=== PATIENT | female | born 1990 | race American Indian/Alaskan Native ===

== ENCOUNTER 2022-04-26 15:43 | Emergency (ER) | payer MEDICAID ==
[2022-04-26 16:31] VITALS: BP 144/92
--- NOTE | 2022-04-26 16:44 | Emergency Department Report ---
ED General Adult HPI - General Chief complaint: Chest Pain Stated complaint: 19WKS /CHEST PAIN PUI?: No Time Seen by Provider: 04/26/22 16:38 Source: patient Mode of arrival: Ambulatory Limitations: No Limitations - History of Present Illness Initial comments: PT IS 31 YO WHO COMES TO ER WITH CP/SOB/PALPITATIONS SHE IS 19W SENT HERE BY MD FOR PE EVALUATION PT IS WEARING A HEART MONITOR Severity scale (0 -10): 8 - Related Data Allergies Allergy/AdvReac Type Severity Reaction Status Date / Time aspirin Allergy Shortness Verified 04/26/22 16:32 of Breath ED Review of Systems ROS: Stated complaint: 19WKS /CHEST PAIN Other details as noted in HPI Comment: All other systems reviewed and negative ED Past Medical Hx - Past Medical History Previous Medical History?: Yes Additional medical history: SVT, anxiety, ectopic - Surgical History Past Surgical History?: Yes - Family History Family history: no significant - Social History Smoking Status: Never Smoker Substance Use Type: None ED Physical Exam - General Limitations: No Limitations General appearance: alert, in no apparent distress - Head Head exam: Present: atraumatic, normocephalic - Eye Eye exam: Present: normal appearance - ENT ENT exam: Present: mucous membranes moist - Neck Neck exam: Present: normal inspection - Respiratory Respiratory exam: Present: normal lung sounds bilaterally. Absent: respiratory distress - Cardiovascular Cardiovascular Exam: Present: regular rate, normal rhythm. Absent: systolic murmur, diastolic murmur, rubs, gallop - GI/Abdominal GI/Abdominal exam: Present: soft, normal bowel sounds - Extremities Exam Extremities exam: Present: normal inspection - Back Exam Back exam: Present: normal inspection - Neurological Exam Neurological exam: Present: alert, oriented X3 - Psychiatric Psychiatric exam: Present: normal affect, normal mood - Skin Skin exam: Present: warm, dry, intact, normal color. Absent: rash ED Course Vital Signs 04/26/22 16:28 Temperature 98.9 F Pulse Rate 112 H Respiratory 14 Rate Blood Pressure 144/92 [Right] O2 Sat by Pulse 97 Oximetry ED Medical Decision Making - Medical Decision Making LABS/EKG ORDERED TO MAIN FOR EVALUATION Critical care attestation.: If time is entered above; I have spent that time in minutes in the direct care of this critically ill patient, excluding procedure time. ED Disposition Clinical Impression: Chest pain Disposition: 30 STILL A PATIENT Is pt being admited?: No Does the pt Need Aspirin: No Condition: Stable Time of Disposition: 16:43
[2022-04-26 17:16] LABS: Hematocrit 35.4 % (30.3-42.9); Hemoglobin 11.9 gm/dl (10.1-14.3); Mean Corpuscular HGB Conc 34 % (30-34); Mean Corpuscular Volume 90 fl (79-97); Platelet Count 252 K/mm3 (140-440); Red Blood Count 3.95 M/mm3 (3.65-5.03); Red Cell Distribution Width 15.1 % (13.2-15.2)
[2022-04-26 17:32] LABS: INR 0.84 (0.87-1.13)
[2022-04-26 17:33] LABS: Partial Thromboplastin Time 30.5 Sec. (24.2-36.6)
[2022-04-26 17:34] LABS: Alanine Aminotransferase 9 units/L (7-56); Albumin 3.6 g/dL (3.9-5); Blood Urea Nitrogen 6 mg/dL (7-17); Calcium 9.4 mg/dL (8.4-10.2); Hemolysis Index 2
[2022-04-26 17:35] LABS: BUN/Creatinine Ratio 12
--- NOTE | 2022-04-29 18:06 | Electrocardiograph Report ---
[facility] Test Date: 2022-04-26 Test Time: 16:19:36 Pat Name: MARCIA PETERSON Department: Room: Gender: F Good Humor Vendor: JUNIOR : 1990 Requested By: MONIQUE PERES Order Number: [id number] Reading MD: Suresh Mackay Measurements Intervals [place] Rate: 100 P: 57 LA: 154 QRS: 40 QRSD: 94 T: 30 QT: 339 QTc: 438 Interpretive Statements Sinus tachycardia No previous ECG available for comparison Electronically Signed On 04-29-2022 18:05:46 EDT by Suresh Mackay
== END 2022-04-27 05:28 | disposition still patient (30) ==
LOC: ED 15:43
DX: O99.412 Diseases of the circulatory system complicating pregnancy, second trimester (principal); Z3A.19 19 weeks gestation of pregnancy; Z88.6 Allergy status to analgesic agent; F41.9 Anxiety disorder, unspecified
CPT/HCPCS: 36415; 80053; 83880; 84439; 84443; 84484; 85027; 85379; 85610; 85730; 93005; 99282; 99283

== ENCOUNTER 2022-05-14 11:27 | Outpatient (CLI) | payer MEDICAID ==
[2022-05-14 14:07] LABS: Amphetamine Screen,Urine Negative; Benzodiazepines Screen,Urine Negative; Cannabinoid Screen,Urine Negative; Cocaine Screen,Urine Negative; Methadone Screen,Urine Negative; Opiate Screen,Urine Negative
[2022-05-14 14:18] VITALS: BP 120/83
[2022-05-14 14:29] LABS: Bacteria,Urine 2+ /HPF (Negative); Mucus,Urine FEW /HPF
--- NOTE | 2022-05-14 14:40 | Ultrasound Report ---
ULTRASOUND OBSTETRIC LIMITED INDICATION / CLINICAL INFORMATION: FHR. - Clinical Gestational Age (GA) in weeks, days: 21, 5 TECHNIQUE: Transabdominal. COMPARISON: None available. FINDINGS: HEART RATE (beats per minute): 170 PRESENTATION: Cephalic. ADDITIONAL FINDINGS: There is good movement per the technologist. IMPRESSION: The heart rate is 170 bpm. Signer Name: Bartolo Swanson MD Signed: 05/14/2022 2:36 PM Workstation Name: [email or web address]
[2022-05-14 14:43] LABS: Color,Urine Straw (Yellow)
== END 2022-05-14 14:39 | disposition left against medical advice (07) ==
LOC: EDSTATUS 11:57 → TRG 12:17 → APU 12:20 → TRG 14:39
PROVIDERS: ATTEND Obstetrics & Gynecology
DX: Z34.92 Encounter for supervision of normal pregnancy, unspecified, second trimester (principal); Z3A.26 26 weeks gestation of pregnancy
CPT/HCPCS: 76815; 80307; 81001; 87086

== ENCOUNTER 2022-05-27 06:41 | Emergency (ER) | payer MEDICAID ==
[2022-05-27] MEDS ORDERED: SODIUM CHLORIDE 0.9% 1000 ML 1,000 ML IV ONE (07:03)
[2022-05-27] MEDS ORDERED: METOPROLOL TARTRATE 5 MG/5 ML INJ IV ONE ×2 (07:04→07:15)
--- NOTE | 2022-05-27 07:15 | Emergency Department Report ---
ED Palpitations HPI - General Chief Complaint: Arrhythmia/Palpitations Stated Complaint: SVT Time Seen by Provider: 05/27/22 07:01 Source: patient, EMS Mode of arrival: Stretcher Limitations: No Limitations - History of Present Illness Initial Comments: 32 yo at 24 wks gestation with recent diagnosis of SVT who came with palpitation that is been worsening for the last couple of days. She says she was here the last visit but has to sign out before seen because it was too late. Pt denies any drug use. She reports nausea and emesis. No fever or chills reported. Pt denies any vaginal bleeding or discharge. No gush of fluid reported. No abdominal discomfort noted. No other modifying or associated factors reported. - Related Data Previous Rx's Medication Instructions Recorded Last Taken Type Metoprolol [Lopressor TAB] 50 mg PO BID 30 Days #60 tablet NS 05/27/22 Unknown Rx Allergies Allergy/AdvReac Type Severity Reaction Status Date / Time aspirin Allergy Shortness Verified 04/26/22 16:32 of Breath cyclobenzaprine Allergy Unknown Verified 05/27/22 06:51 [From Flexeril] tramadol Allergy Unknown Verified 05/27/22 06:51 ED Review of Systems ROS: Stated complaint: SVT Other details as noted in HPI Comment: All other systems reviewed and negative Cardiovascular: palpitations (svt) Gastrointestinal: nausea, vomiting, other (). denies: abdominal pain ED Past Medical Hx - Past Medical History Hx Deep Vein Thrombosis: Yes (SVT) Hx Renal Disease: No Hx Sickle Cell Disease: No Hx Seizures: No Hx HIV: No Additional medical history: SVT, anxiety, ectopic - Social History Smoking Status: Never Smoker - Medications Home Medications: Home Medications Medication Instructions Recorded Confirmed Last Taken Type Metoprolol [Lopressor TAB] 50 mg PO BID 30 Days #60 tablet NS 05/27/22 Unknown Rx ED Physical Exam - General Limitations: No Limitations General appearance: alert, in no apparent distress, anxious - ENT ENT exam: Present: normal exam, mucous membranes dry - Neck Neck exam: Present: full ROM. Absent: tenderness - Respiratory Respiratory exam: Present: normal lung sounds bilaterally. Absent: respiratory distress, accessory muscle use - Cardiovascular Cardiovascular Exam: Present: normal rhythm, tachycardia, normal heart sounds - GI/Abdominal GI/Abdominal exam: Present: soft, other ( ) - Extremities Exam Extremities exam: Present: normal inspection, normal capillary refill. Absent: tenderness, pedal edema - Back Exam Back exam: Present: normal inspection. Absent: tenderness, CVA tenderness (R), CVA tenderness (L) - Neurological Exam Neurological exam: Present: alert, oriented X3 - Psychiatric Psychiatric exam: Present: normal affect, anxious - Skin Skin exam: Present: warm, normal color ED Course Vital Signs 05/27/22 05/27/22 05/27/22 06:52 07:00 07:13 Pulse Rate 227 H 210 H Respiratory 26 H Rate Blood Pressure 98/44 Blood Pressure [Left] O2 Sat by Pulse 94 Oximetry 05/27/22 05/27/22 05/27/22 07:16 07:30 07:46 Pulse Rate 210 H 185 H 189 H Respiratory 17 23 17 Rate Blood Pressure 96/48 94/58 70/45 Blood Pressure [Left] O2 Sat by Pulse 95 89 Oximetry 05/27/22 05/27/22 05/27/22 08:00 08:13 08:16 Pulse Rate 188 H 193 H Respiratory 26 H 26 H 28 H Rate Blood Pressure 70/45 70/36 Blood Pressure [Left] O2 Sat by Pulse 96 100 99 Oximetry 05/27/22 05/27/22 05/27/22 08:30 08:46 08:56 Pulse Rate 205 H 191 H 109 H Respiratory 20 21 18 Rate Blood Pressure 84/36 54/33 Blood Pressure 110/66 [Left] O2 Sat by Pulse 99 100 Oximetry 05/27/22 05/27/22 05/27/22 09:00 09:02 09:16 Pulse Rate 122 H 111 H 104 H Respiratory 17 17 22 Rate Blood Pressure 54/33 94/62 Blood Pressure 109/64 [Left] O2 Sat by Pulse 99 100 99 Oximetry 05/27/22 05/27/22 05/27/22 09:30 09:46 10:00 Pulse Rate 105 H 104 H 104 H Respiratory 18 19 21 Rate Blood Pressure 107/74 118/64 118/64 Blood Pressure [Left] O2 Sat by Pulse 99 100 100 Oximetry 05/27/22 05/27/22 05/27/22 10:25 10:30 10:46 Pulse Rate 110 H 103 H 99 H Respiratory 15 13 Rate Blood Pressure 96/63 102/59 101/49 Blood Pressure [Left] O2 Sat by Pulse 97 99 Oximetry 05/27/22 05/27/22 11:00 11:16 Pulse Rate 98 H 121 H Respiratory 20 14 Rate Blood Pressure 113/75 102/54 Blood Pressure [Left] O2 Sat by Pulse 97 Oximetry - Reevaluation(s) Reevaluation #1: 05/27/22 08:58 I was called to the room that patient was vomiting and at the same time noticed her blood pressure up 116/66 mmHg and the heart rate down to 109 bpm. Pt ordered for Zofran 4 mg IV x 1-- will continue to monitor this patient and the fetus. 05/27/22 09:07 - Consultations Consultation #1: 05/27/22 09:33 Dr Mackay consulted who called back and suggested discharging this patient with metoprolol 50 mg PO x BID and follow with her seasonal clerk ED Medical Decision Making - Lab Data Result diagrams: 05/27/22 07:36 05/27/22 07:36 - EKG Data -: EKG Interpreted by Me - EKG Data 05/27/22 14:30 Initial EKG supraventricular tachycardia at a rate of [address] elev ation in this abnormal ECG 05/27/22 14:31 8 repeated EKG after conversion noted with sinus tachycardia at a rate of 102 bpm - Medical Decision Making here with palpitation and noted in SVT at the rate of 220 bpm on presentation with EKG captured at 208 bpm-- will go ahead and order routine labs including CBC, CMP, UA and thyroid profile for any infectious process or electrolytes abnormality or thyroid derangement. In the mean time-- carotid massage left and right side at a time with no response. Pt ordered for Metoprolol 2.5 mg IV x 1 and call made out for Dr Mackay the seasonal clerk concreter-- Dr Mackay agreed with metoprolol and suggested 5 mg but because this patient blood pressure noted be very soft at 94/65 mmHg. Will continue to reassess and give the remaining Metoprolol 2.5 mg. Noted with improvement in heart rate now at 187 bpm from 220 bpm. I also called and involved the Queen Producer Dr Putnam who suggested getting a full Ob US with bioprofile to start with. Pt's internal affairs commander is [facility] by Dr Milton Raman and Retail Product Advisor at [facility]. Pt is also started on ivf ns 1L bolus for hydration incase of dehydration and given Versed 2 mg IV for noted anxiety-- Will continue to monitor this patient progress. Patient was able to sleep and rested--and was noted with heart rate of between 75 and 85 on the monitor with an improved blood pressure. Dr Putnam came into the ED and saw patient and discussed the normal bioprofile US with me-- and sign off on this patient to follow up her regular Queen Producer. Dr Mackay however wanted me to start this patient on Metoprolol 50 mg BID with close follow up with her PCP and Queen Producer-- pt reassured Critical Care Time: Yes (120) Critical care time in (mins) excluding proc time.: 120 Critical care attestation.: If time is entered above; I have spent that time in minutes in the direct care of this critically ill patient, excluding procedure time. Here with SVT with hypotension with nausea and vomiting and with 6 months gestation and due to high probability of clinically significant, life threatening deterioration, this patient required my highest level of preparedness to intervene emergently and I personally spent this critical care time directly and personally managing this patient. This critical care time included obtaining a history; examining this patient; pulse oximetry ; ordering and review of studies ; arranging urgent treatment with development of a managem ent plan ; evaluation of patient's response to treatment ; frequent reassessment ; and, discussion with other providers. This critical care time was performed to assess and manage the high probability of imminent, life-threatening deterioration that could result in multiple organ damage if not done in a timely fashion. ED Disposition Clinical Impression: SVT (supraventricular tachycardia), and not yet delivered in second trimester Nausea and vomiting Qualifiers: Vomiting type: unspecified Qualified Code(s): R11.2 - Nausea with vomiting, unspecified Disposition: 01 HOME / SELF CARE / HOMELESS Is pt being admited?: No Does the pt Need Aspirin: No Condition: Stable Instructions: and Travel, Care, Nausea and Vomiting, Adult, Supraventricular Tachycardia, Adult, [id number], Nausea and Vomiting, Adult, [id number], Preventing Injuries During , [id number], Second Trimester of , [id number] Additional Instructions: Please follow the above printed instruction as suggested Call and schedule follow-up with your primary doctor/STAFF ELECTRONIC WARFARE OFFICER as planned Please do not hesitate to call or return to emergency room if your symptoms worsen It is very important that you continue to take your heart medicine metoprolol to continue to stabilize your irregular heartbeat Prescriptions: Metoprolol [Lopressor TAB] 50 mg PO BID 30 Days #60 tablet NS Time of Disposition: 14:38
[2022-05-27 07:34] LABS: Bacteria,Urine 1+ /HPF (Negative); Mucus,Urine 2+ /HPF
[2022-05-27 07:46] LABS: Basophils # (Auto) 0.1 K/mm3 (0.0-0.1); Basophils % (Auto) 0.8 % (0.0-1.8); Eosinophils # (Auto) 0.2 K/mm3 (0.0-0.4); Eosinophils % (Auto) 2.2 % (0.0-4.3); Hematocrit 33.3 % (30.3-42.9); Hemoglobin 10.9 gm/dl (10.1-14.3); Lymphocytes # (Auto) 3.4 K/mm3 (1.2-5.4); Lymphocytes % (Auto) 29.8 % (13.4-35.0); Mean Corpuscular HGB Conc 33 % (30-34); Mean Corpuscular Volume 90 fl (79-97); Monocytes # (Auto) 0.9 K/mm3 (0.0-0.8); Monocytes % (Auto) 7.6 % (0.0-7.3); Platelet Count 271 K/mm3 (140-440); Red Blood Count 3.72 M/mm3 (3.65-5.03); Red Cell Distribution Width 15.3 % (13.2-15.2)
[2022-05-27 07:56] LABS: INR 0.97 (0.87-1.13)
[2022-05-27 07:57] LABS: Partial Thromboplastin Time 28.8 Sec. (24.2-36.6)
[2022-05-27] MEDS ORDERED: MIDAZOLAM 5 MG/5 ML INJ MDV IV NR (08:00)
[2022-05-27 08:03] LABS: Color,Urine Yellow (Yellow)
[2022-05-27 08:21] LABS: Alanine Aminotransferase 10 units/L (7-56); Albumin 3.3 g/dL (3.9-5); Blood Urea Nitrogen 7 mg/dL (7-17); Calcium 8.4 mg/dL (8.4-10.2); Hemolysis Index 15
[2022-05-27 08:24] LABS: BUN/Creatinine Ratio 10
[2022-05-27 08:27] LABS: Free T4 (Free Thyroxine) 0.7 ng/dL (0.76-1.46)
[2022-05-27] MEDS ORDERED: ONDANSETRON 4 MG/2 ML INJ ONE (08:58)
--- NOTE | 2022-05-27 10:30 | Ultrasound Report ---
. ULTRASOUND BIOPHYSICAL PROFILE INDICATION: SVT and at 24 weeks. COMPARISON: None available. FINDINGS: heart rate is 160 beats per minute. breathing movement = 2 Gross body movement = 2 tone = 2 Qualitative amniotic fluid volume = 2 IMPRESSION: biophysical profile = 05/03 Signer Name: Slick Mishra Jr, MD Signed: 05/27/2022 10:25 AM Workstation Name: [id number]
[2022-05-27 11:28] VITALS: BP 102/54
--- NOTE | 2022-05-27 17:21 | Consultation ---
History of Present Illness Consult date: 05/27/22 Requesting physician: SHANNON JOHNSON Reason for consult: other (In the ER for supraventricular tachycardia whilst "6 months" . ER MD sought my consult re the best way to evaluate well being while they kept patient for management of SVT.) Past History Past Medical History: no pertinent history - Obstetrical History : 9 Medications and Allergies Allergies Allergy/AdvReac Type Severity Reaction Status Date / Time aspirin Allergy Shortness Verified 04/26/22 16:32 of Breath cyclobenzaprine Allergy Unknown Verified 05/27/22 06:51 [From Flexeril] tramadol Allergy Unknown Verified 05/27/22 06:51 Home Medications Medication Instructions Recorded Confirmed Last Taken Type Metoprolol [Lopressor TAB] 50 mg PO BID 30 Days #60 tablet NS 05/27/22 Unknown Rx Review of Systems All systems: negative Genitourinary: normal appearance, no vaginal bleeding, no vaginal discharge, no leakage of fluid, no dysuria, no pelvic pain, no hematuria, no contractions - Vital Signs Vital signs: Vital Signs Pulse Ox 94 05/27/22 06:52 Temp Pulse Resp BP Pulse Ox 121 H 14 102/54 97 05/27/22 11:16 05/27/22 11:16 05/27/22 11:16 05/27/22 11:00 - Physical Exam Lungs: Positive: Normal air movement Abdomen: Positive: normal appearance, soft, normal bowel sounds. Negative: tenderness - Obstetrical FHR: other (BPP 8/8) Results Result Diagrams: 05/27/22 07:36 05/27/22 07:36 Abnormal lab results 05/27/22 05/27/22 05/27/22 Range/Units 07:36 07:36 07:36 WBC 11.4 H (4.5-11.0) K/mm3 RDW 15.3 H (13.2-15.2) % Hughes % (Auto) 7.6 H (0.0-7.3) % Hughes # (Auto) 0.9 H (0.0-0.8) K/mm3 Sodium 136 L (137-145) mmol/L Carbon Dioxide 20 L (22-30) mmol/L Glucose 145 H (65-100) mg/dL Total Protein 6.2 L (6.3-8.2) g/dL Albumin 3.3 L (3.9-5) g/dL Free T4 0.70 L (0.76-1.46) ng/dL Urine WBC (Auto) (0.0-6.0) /HPF 05/27/22 Range/Units Unknown WBC (4.5-11.0) K/mm3 RDW (13.2-15.2) % Hughes % (Auto) (0.0-7.3) % Hughes # (Auto) (0.0-0.8) K/mm3 Sodium (137-145) mmol/L Carbon Dioxide (22-30) mmol/L Glucose (65-100) mg/dL Total Protein (6.3-8.2) g/dL Albumin (3.9-5) g/dL Free T4 (0.76-1.46) ng/dL Urine WBC (Auto) 17.0 H (0.0-6.0) /HPF All other labs normal. Ultrasound: report reviewed Assessment and Plan - Patient Problems (1) Nausea and vomiting Current Visit: Yes Status: Acute Qualifiers: Vomiting type: unspecified Qualified Code(s): R11.2 - Nausea with vomiting, unspecified (2) SVT (supraventricular tachycardia) Current Visit: Yes Status: Acute (3) and not yet delivered in second trimester Current Visit: Yes Status: Acute Plan to address problem: stable. May return to own OBGYN [facility] within days of discharge from the ER.
--- NOTE | 2022-05-28 13:31 | Electrocardiograph Report ---
[facility] Test Date: 2022-05-27 Test Time: 07:10:15 Pat Name: MARCIA PETERSON Department: Room: Gender: F Senior Test Analyst: NOAM : 1990 Requested By: RODRIGO CRAVEN Order Number: [id number] Reading MD: Suresh Mackay Measurements Intervals [place] Rate: 208 P: 192 VT: 76 QRS: 60 QRSD: 80 T: 28 QT: 256 QTc: 477 Interpretive Statements Supraventricular tachycardia ST depression, probably rate related Compared to ECG 04/26/2022 16:19:36 Supraventricular tachycardia has replaced sinus rhythm Electronically Signed On 05-28-2022 13:31:13 EDT by Suresh Mackay
--- NOTE | 2022-05-28 13:32 | Electrocardiograph Report ---
[facility] Test Date: 2022-05-27 Test Time: 09:25:55 Pat Name: MARCIA PETERSON Department: Room: Gender: F Quantitative Analyst Marketing: : 1990 Requested By: RODRIGO CRAVEN Order Number: [id number] Reading MD: Suresh Mackay Measurements Intervals [place] Rate: 102 P: 55 MD: 160 QRS: 20 QRSD: 78 T: 13 QT: 335 QTc: 437 Interpretive Statements Sinus tachycardia Compared to ECG 05/27/2022 07:10:15 Sinus has replaced SVT Electronically Signed On 05-28-2022 13:32:39 EDT by Suresh Mackay
== END 2022-05-27 19:00 | disposition home or self-care (01) ==
LOC: ED 06:41
DX: O99.412 Diseases of the circulatory system complicating pregnancy, second trimester (principal); O21.9 Vomiting of pregnancy, unspecified; Z3A.24 24 weeks gestation of pregnancy
CPT/HCPCS: 36415; 76819; 80053; 81001; 83880; 84439; 84443; 85025; 85610; 85730; 87086; 93005; 96361; 96374; 96375; 96376; 99291; 99292; J2250; J2405; J7030; 99284